=== PATIENT | female | born 1980 | race Caucasian/White ===

== ENCOUNTER 2017-10-07 12:18 | Emergency (ER) | payer BC, OTHER ==
[2017-10-07 12:53] LABS: Absolute Lymphocytes (CBC) 2.3 K/uL (0.7-4.9); Absolute Monocytes 0.5 K/uL (0.1-1.3); Absolute Neutrophil 3.9 K/uL (1.8-8.0); Basophils % 0.5 % (0-1.3); Eosinophils % 4.7 % (0-4.4); Hematocrit 41.3 % (36.0-45.0); Lymphocytes % 33.2 % (15.3-44.8); MCH 33.1 pg (27.0-35.0); MCV 98.4 fL (80-100); MPV 10.4 fL (7.6-11.3); Monocytes % 6.5 % (3.3-12.3)
[2017-10-07] MEDS ORDERED: LIDOCAINE VISCOUS 2% SOLN 15 ML UDC ONE (13:02)
[2017-10-07] MEDS ORDERED: MAGNES/ALUMIN/SIMET 30ML UCUP ONE (13:03)
[2017-10-07] MEDS ORDERED: ONDANSETRON 4 MG/2 ML VIAL ONE (13:06)
[2017-10-07 13:10] LABS: ALT/SGPT 60 U/L (12-78); AST/SGOT 53 U/L (15-37); Albumin 4.3 g/dL (3.4-5.0); Alkaline Phosphatase 45 U/L (45-117); BUN Blood Urea Nitrogen 10 mg/dL (7-18); Bicarbonate 25 mmol/L (21-32); Bilirubin Direct 0.1 mg/dL (0-0.2); Bilirubin Total 0.4 mg/dL (0.2-1.0); CKMB Creatine Kinase MB 1.2 ng/mL (0.3-3.6); Creatine Phosphokinase 126 U/L (26-192); Glucose Level 88 mg/dL (74-106); Lipase 203 U/L (73-393); Magnesium 2.1 mg/dL (1.8-2.4); NT PRO-BNP 13 pg/mL (<125); Potassium 3.7 mmol/L (3.5-5.1); Protein, Total 7.8 g/dL (6.4-8.2); Sodium Level 137 mmol/L (136-145)
[2017-10-07] MEDS ORDERED: MORPHINE 4 MG/ML SYR ONE (13:21)
[2017-10-07 13:29] LABS: Urine Blood TRACE (NEG); Urine Glucose NEGATIVE (NEG); Urine Protein NEGATIVE (NEG)
--- NOTE | 2017-10-07 13:38 | RAD REPORT ---
EXAM DESCRIPTION: RAD - Chest Single View - 10/07/2017 1:17 pm CLINICAL HISTORY: Upper abdominal pain, lower chest pain COMPARISON: None. TECHNIQUE: AP portable chest image was obtained 1309 hours . FINDINGS: Lungs are clear. Heart and vasculature are normal. No measurable pleural effusion and no p neumothorax. No gross bony abnormality seen. No acute aortic findings suspected. IMPRESSION: No acute cardiopulmonary process.
--- NOTE | 2017-10-07 13:44 | ER ---
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 Transition of care: patient was not received from another setting of care. Onset of symptoms was October 07, 2017. Risk Assessment: Do you want to hurt yourself or someone else? Patient reports no desire to harm self or others. Initial Sepsis Screen: Does the patient meet any 2 criteria? No. Patient's initial sepsis screen is negative. Does the patient have a suspected source of infection? No. Patient's initial sepsis screen is negative. Care prior to arrival: Glucose check: 85. 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 - Social history:: Smoking status: Patient uses tobacco products, 1 pack every 2-3 days. - Ebola Screening: : Patient negative for fever greater than or equal to 101.5 degrees Fahrenheit, and additional compatible Ebola Virus Disease symptoms Patient denies exposure to infectious person Patient denies travel to an Ebola-affected area in the 21 days before illness onset No symptoms or risks identified at this time. - Family history:: not pertinent. Screenin:30 Abuse screen: Denies threats or abuse. Denies injuries from another. Nutritional ch screening: No deficits noted. Tuberculosis screening: No symptoms or risk factors identified. Fall Risk None identified. Assessment: 13:30 General: Appears in no apparent distress. comfortable, Behavior is calm, cooperative. ch Pain: Complains of pain in right upper quadrant and epigastric area Pain currently is 6 out of 10 on a pain scale. Respiratory: Airway is patent Trachea midline Respiratory effort is even, unlabored, Breath sounds are clear bilaterally. GI: Bowel sounds present X 4 quads. Abd is soft X 4 quads Abdomen is tender to palpation X 4 quads. Derm: Skin is pink, warm \\T\\ dry. 14:23 Reassessment: Patient appears in no apparent distress at this time. Patient and/or ch family updated on plan of care and expected duration. Pain level reassessed. Patient is alert, oriented x 3, equal unlabored respirations, skin warm/dry/pink. Patient states feeling better. Patient states symptoms have improved. Vital Signs: 12:32 BP 133 / 87; Pulse 86; Resp 16; Temp 98.3(TE); Pulse Ox 97% on R/A; Weight 61.23 kg; iw Height 5 ft. 4 in. (162.56 cm); Pain 6/10; 13:30 BP 119 / 74; Pulse 76; Resp 18; Temp 98.3; Pulse Ox 99% on R/A; Pain 6/10; ch 14:23 BP 117 / 58; Pulse 70; Resp 14; Temp 97.9; Pulse Ox 99% on R/A; Pain 0/10; ch 12:32 Body Mass Index 23.17 (61.23 kg, 162.56 cm) iw ED Course: 12:21 Patient arrived in ED. iw 12:24 Triage completed. iw 12:25 Romulo Costello MD is Attending Physician. [facility] 12:25 Arm band placed on. iw 12:45 No provider procedures requiring assistance completed. Inserted saline lock: 20 gauge ch in right forearm, using aseptic technique. Blood collected. 12:45 Urine collected:. ch 13:14 Cristin Dhillon, RN is Primary Nurse. ch 13:17 XRAY Chest (1 view) In Process Unspecified. EDMS 13:24 X-ray completed. Patient tolerated procedure well. ml 13:30 Patient has correct armband on for positive identification. Placed in gown. Bed in low ch position. Call light in reach. Side rails up X 1. Adult w/ patient. ekg monitor on. Pulse ox on. NIBP on. Warm blanket given. 13:59 US Abdomen Limited In Process Unspecified. EDMS 14:00 IV discontinued, intact, bleeding controlled, No redness/swelling at site. Pressure ch dressing applied. Administered Medications: 13:00 Drug: GI Cocktail without - (Maalox Suspension 30 ml, Lidocaine Liquid 2 % 15 ch ml) Route: PO; 13:21 Follow up: Response: No adverse reaction; No change in condition 13:00 Drug: Zofran 4 mg Route: IVP; Site: right forearm; ch 14:22 Follow up: Response: No adverse reaction 13:21 Drug: morphine 2 mg Route: IVP; Site: right forearm; ch 14:22 Follow up: Response: No adverse reaction Outcome: 13:44 Discharge ordered by . [facility] 14:00 Discharged to home ambulatory, with family. 14:00 Condition: stable 14:00 Discharge instructions given to patient, family, Instructed on discharge instructions, follow up and referral plans. medication usage, Demonstrated understanding of instructions, follow-up care, medications, Prescriptions given X 1. 14:38 Patient left the ED. la1 Signatures: Dispatcher [employer] EDMS Cristin Dhillon, Romulo Acosta RN, ch, MD MD cha Williams, Irene, RN Kayla Groves Lee RN RN la1
--- NOTE | 2017-10-07 13:44 | EDPHYS ---
Physician Documentation [facility] Name: Romulo Petersen Age: 37 yrs Sex: Female : 1980 Arrival Date: 10/07/2017 Time: 12:21 Bed 20 Private MD: ED Physician PravinRomulo HPI: 10/07 12:37 This 37 yrs old Female presents to ER via EMS with complaints of Abdominal magdy Pain, Anxiety. 12:37 The patient or guardian reports chest pain that is located primarily in the epigastric magdy area, anterior chest wall, bilaterally. The patient presents with abdominal pain in the epigastric area, in the right upper quadrant. Onset: The symptoms/episode began/occurred just prior to arrival, this morning. The symptoms do not radiate. The pain does not radiate. Associated signs and symptoms: none. Modifying factors: The symptoms are alleviated by nothing, the symptoms are aggravated by nothing. 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 - Social history:: Smoking status: Patient uses tobacco products, 1 pack every 2-3 days. - Ebola Screening: : Patient negative for fever greater than or equal to 101.5 degrees Fahrenheit, and additional compatible Ebola Virus Disease symptoms Patient denies exposure to infectious person Patient denies travel to an Ebola-affected area in the 21 days before illness onset No symptoms or risks identified at this time. - Family history:: not pertinent. ROS: 12:37 Constitutional: Negative for fever, chills, and weight loss, Eyes: Negative for injury, magdy pain, redness, and discharge, ENT: Negative for injury, pain, and discharge, Neck: Negative for injury, pain, and swelling, Cardiovascular: Negative for chest pain, palpitations, and edema, Respiratory: Negative for shortness of breath, cough, wheezing, and pleuritic chest pain, Back: Negative for injury and pain, : Negative for injury, bleeding, discharge, and swelling, MS/Extremity: Negative for injury and deformity, Skin: Negative for injury, rash, and discoloration, Neuro: Negative for headache, weakness, numbness, tingling, and seizure, Psych: Negative for depression, anxiety, suicide ideation, homicidal ideation, and hallucinations, Allergy/Immunology: Negative for hives, rash, and allergies, Endocrine: Negative for neck swelling, polydipsia, polyuria, polyphagia, and marked weight changes, Hematologic/Lymphatic: Negative for swollen nodes, abnormal bleeding, and unusual bruising. 12:37 Abdomen/GI: Positive for abdominal pain, of the epigastric area and right upper quadrant. Exam: 12:37 Constitutional: This is a well developed, well nourished patient who is awake, alert, magdy and in no acute distress. Head/Face: Normocephalic, atraumatic. Eyes: Pupils equal round and reactive to light, extra-ocular motions intact. Lids and lashes normal. Conjunctiva and sclera are non-icteric and not injected. Cornea within normal limits. Periorbital areas with no swelling, redness, or edema. ENT: Nares patent. No nasal discharge, no septal abnormalities noted. Tympanic membranes are normal and external auditory canals are clear. Oropharynx with no redness, swelling, or masses, exudates, or evidence of obstruction, uvula midline. Mucous membranes moist. Neck: Trachea midline, no thyromegaly or masses palpated, and no cervical lymphadenopathy. Supple, full range of motion without nuchal rigidity, or vertebral point tenderness. No Meningismus. Chest/axilla: Normal chest wall appearance and motion. Nontender with no deformity. No lesions are appreciated. Cardiovascular: Regular rate and rhythm with a normal S1 and S2. No gallops, murmurs, or rubs. Normal PMI, no JVD. No pulse deficits. Respiratory: Lungs have equal breath sounds bilaterally, clear to auscultation and percussion. No rales, rhonchi or wheezes noted. No increased work of breathing, no retractions or nasal flaring. Back: No spinal tenderness. No costovertebral tenderness. Full range of motion. Skin: Warm, dry with normal turgor. Normal color with no rashes, no lesions, and no evidence of cellulitis. MS/ Extremity: Pulses equal, no cyanosis. Neurovascular intact. Full, normal range of motion. Neuro: Awake and alert, GCS 15, oriented to person, place, time, and situation. Cranial nerves II-XII grossly intact. Motor strength 5/5 in all extremities. Sensory grossly intact. Cerebellar exam normal. Normal gait. Psych: Awake, alert, with orientation to person, place and time. Behavior, mood, and affect are within normal limits. 12:37 Abdomen/GI: Inspection: abdomen appears normal, Bowel sounds: normal, Palpation: mild abdominal tenderness, in the epigastric area and right upper quadrant, Liver: no appreciated palpable abnormalities, Hernia: not appreciated. 12:40 Musculoskeletal/extremity: DVT Exam: No signs of deep vein thrombosis. no pain, no magdy swelling, no tenderness, negative Homans' sign noted on exam, no appreciated bluish discoloration, no erythema, no increased warmth. Vital Signs: 12:32 BP 133 / 87; Pulse 86; Resp 16; Temp 98.3(TE); Pulse Ox 97% on R/A; Weight 61.23 kg; iw Height 5 ft. 4 in. (162.56 cm); Pain 6/10; 13:30 BP 119 / 74; Pulse 76; Resp 18; Temp 98.3; Pulse Ox 99% on R/A; Pain 6/10; ch 14:23 BP 117 / 58; Pulse 70; Resp 14; Temp 97.9; Pulse Ox 99% on R/A; Pain 0/10; ch 12:32 Body Mass Index 23.17 (61.23 kg, 162.56 cm) iw MDM: 12:25 Patient medically screened. [facility] 12:40 Data reviewed: vital signs, nurses notes, lab test result(s), EKG, radiologic studies, [facility] plain films, ultrasound. 10/07 12:37 Order name: Basic Metabolic Panel; Complete Time: 13:41 [facility] 10/07 12:37 Order name: CBC with Diff; Complete Time: 13:41 [facility] 10/07 12:37 Order name: Ckmb; Complete Time: 13:41 [facility] 10/07 12:37 Order name: CPK; Complete Time: 13:41 [facility] 10/07 12:37 Order name: LFT's; Complete Time: 13:41 [facility] 10/07 12:37 Order name: Magnesium; Complete Time: 13:41 [facility] 10/07 12:37 Order name: NT PRO-BNP; Complete Time: 13:41 [facility] 10/07 12:37 Order name: PT-INR; Complete Time: 13:41 [facility] 10/07 12:37 Order name: Ptt, Activated; Complete Time: 13:41 [facility] 10/07 12:37 Order name: Troponin (emerg Dept Use Only); Complete Time: 13:41 [facility] 10/07 12:37 Order name: Lipase; Complete Time: 13:41 [facility] 10/07 12:37 Order name: D-Dimer; Complete Time: 13:41 [facility] 10/07 13:02 Order name: Urine Dipstick--Ancillary (enter results); Complete Time: 13:41 10/07 13:03 Order name: Urine --Ancillary (enter results); Complete Time: 13:41 10/07 12:37 Order name: Urine Test (obtain specimen); Complete Time: 13:21 [facility] 10/07 12:37 Order name: XRAY Chest (1 view); Complete Time: 13:41 [facility] 10/07 12:37 Order name: EKG; Complete Time: 12:37 [facility] 10/07 12:37 Order name: Cardiac monitoring; Complete Time: 13:21 [facility] 10/07 12:37 Order name: EKG - Nurse/Tech; Complete Time: 13:07 [facility] 10/07 12:37 Order name: IV Saline Lock; Complete Time: 13:07 [facility] 10/07 12:37 Order name: Labs collected and sent; Complete Time: 13:07 [facility] 10/07 12:37 Order name: O2 Per Protocol; Complete Time: 13:07 [facility] 10/07 12:37 Order name: O2 Sat Monitoring; Complete Time: 13:07 [facility] 10/07 12:37 Order name: Urine Dipstick-Ancillary (obtain specimen); Complete Time: 13:07 [facility] 10/07 12:37 Order name: US Abdomen Limited magdy Administered Medications: 13:00 Drug: GI Cocktail without - (Maalox Suspension 30 ml, Lidocaine Liquid 2 % 15 ch ml) Route: PO; 13:21 Follow up: Response: No adverse reaction; No change in condition ch 13:00 Drug: Zofran 4 mg Route: IVP; Site: right forearm; ch 14:22 Follow up: Response: No adverse reaction ch 13:21 Drug: morphine 2 mg Route: IVP; Site: right forearm; ch 14:22 Follow up: Response: No adverse reaction ch Disposition: 10/07/17 13:44 Discharged to Home. Impression: Anxiety disorder, unspecified, Abdominal tenderness, Chest pain, unspecified, Tobacco use, Tobacco abuse counseling. - Condition is Stable. - Discharge Instructions: Abdominal Pain, Adult, Panic Attacks, Nonspecific Chest Pain, Steps to Quit Smoking, Smoking Hazards, Abdominal Pain, Adult, [id number], Nonspecific Chest Pain, [id number], Panic Attacks, Fyce-[id number], Aspirin and Your Heart. - Prescriptions for Pepcid 20 mg Oral Tablet - take 1 tablet by ORAL route every 12 hours for 10 days; 20 tablet. - Medication Reconciliation Form, Thank You Letter, Antibiotic Education, Prescription Opioid Use form. - Follow up: Private Physician; When: 2 - 3 days; Reason: Recheck today's complaints, Continuance of care, Re-evaluation by your physician. - Problem is new. - Symptoms have improved. Signatures: Dispatcher [employer] EDMS Cristin Dhillon RN RN Romulo Costello MD MD cha Williams, Irene, RN RN Demetrio Lockwood RN RN la1 Corrections: (The following items were deleted from the chart) 14:38 13:44 10/07/2017 13:44 Discharged to Home. Impression: Anxiety disorder, unspecified; la1 Abdominal tenderness; Chest pain, unspecified; Tobacco use; Tobacco abuse counseling. Condition is Stable. Forms are Medication Reconciliation Form, Thank You Letter, Antibiotic Education, Prescription Opioid Use. Follow up: Private Physician; When: 2 - 3 days; Reason: Recheck today's complaints, Continuance of care, Re-evaluation by your physician. Problem is new. Symptoms have improved. magdy
--- NOTE | 2017-10-07 14:06 | RAD REPORT ---
EXAM DESCRIPTION: US - Abdomen Exam Limited - 10/07/2017 1:59 pm CLINICAL HISTORY: Abdominal pain COMPARISON: None. FINDINGS: No gallstones, sludge or other abnormalities within the gallbladder lumen. There is no wal l thickening or pericholecystic fluid. No common duct stone or biliary tree dilatation identified. Partially imaged liver shows an increase in echotexture that may reflect fatty infiltration. IMPRESSION: Normal gallbladder and biliary tree ultrasound. Possible fatty infiltration of the liver. Liver was not fully assessed on this gallbladder ultrasound study.
[2017-10-07 14:46] VITALS: O2SAT 99
[2017-10-07 14:47] VITALS: BP 117/58; TEMP 97.9
--- NOTE | 2017-10-07 17:26 | EKG ---
Test Date: 2017-10-07 Test Time: 13:48:22 Bed Laborer: LARISSA MEASUREMENT RESULTS: Intervals: Rate: 80 MI: 146 QRSD: 72 QT: 382 QTc: 440 [place]: P: 57 MI: 146 QRS: 57 T: 35 INTERPRETIVE STATEMENTS: Normal sinus rhythm Normal ECG Compared to ECG 02/26/2003 21:52:00 Sinus arrhythmia no longer present Electronically Signed On 10-07-17 17:26:07 CDT by Ravi Braga
== END 2017-10-07 14:38 | disposition home or self-care (01) ==
LOC: ER 12:18
DX: F41.9 Anxiety disorder, unspecified (principal); R07.9 Chest pain, unspecified; Z72.0 Tobacco use; Z71.6 Tobacco abuse counseling
CPT/HCPCS: 36415; 71045; 76705; 80048; 80076; 81003; 81025; 82550; 82553; 83690; 83735; 83880; 84484; 85025; 85379; 85610; 85730; 93005; 96374; 96375; 99285; J2405